=== PATIENT | female | born 1995 | race Two or more races ===

== ENCOUNTER 2024-08-27 09:10 | Emergency (ER) | payer MEDICAID, SELFPAY ==
--- NOTE | 2024-08-27 09:26 | PD.EDADULT ---
ED General RME/HPI General Chief complaint: Shortness of Breath/Dyspnea Stated complaint: SOB, COUGH, CONGESTION, CHEST/BACK PAIN Time Seen by Provider: 08/27/24 09:28 Arrival date/time: 08/27/24 09:10 CC: Wheezing shortness of breath HPI patient has a history of asthma has a flareup ongoing for the past week but worse in the last 24 hours. Denies any chest pain or fever. Wheezing and shortness of breath for the last 12 hours. No OTC medicines other than her inhaler does not have a nebulizer at home. Related Data Previous Rx's ?Medication ?Instructions ?Recorded amoxicillin 875 mg-potassium 1 tab PO BID #14 tabs 09/19/23 clavulanate 125 mg tablet ibuprofen 800 mg tablet (IBU) 800 mg PO Q8H #20 tabs 09/19/23 loratadine 10 mg tablet 10 mg PO QDAY #30 tabs 09/19/23 promethazine-DM 6.25 mg-15 mg/5 mL 5 ml PO Q6H #118 mL 09/19/23 oral syrup pseudoephedrine HCl 120 mg 120 mg PO BID PRN nasal congestion 09/19/23 tablet,extended release (Sudafed #20 tabs 12 Hour) montelukast 10 mg tablet 10 mg PO QDAY #30 tabs 02/13/24 (Singulair) prednisone 50 mg tablet 50 mg PO QDAY #7 tabs 02/13/24 prednisone 20 mg tablet See Taper PO BID 3 days #6 tabs 08/27/24 Allergies Allergy/AdvReac Type Severity Reaction Status Date / Time No Known Allergies Allergy Verified 02/13/24 18:50 Review of Systems Review of Systems Narrative Review of Systems: GEN: No fever, no chills, no weight loss EYES: No discharge, no visual changes, no pain HEENT: No ear pain, no congestion, no sore throat PULM: + Wheezing,+ shortness of breath, no cough, no congestion CV: No chest pain, no dyspnea on exertion, no palpitations GI: No nausea, no vomiting, no diarrhea, no pain, no constipation : No frequency, no urgency, no dysuria MUSC/SKEL: No joint pain, no back pain SKIN: No rash PSYCH: No hallucinations, no depression HEME/LYMPH: No easy bleeding or bruising tendencies NEURO: No weakness, no headache Past Medical History Social History SMOKING STATUS: Never smoker ED Exam Narrative Physical exam: [General: Not in any acute distress Head normocephalic HEENT: Within acceptable limits Neck is supple nontender Chest equal chest rise nontender to palpation Respiratory: Subtle end expiratory wheezing. No crackles. CV: Rate rhythm is regular no murmurs rubs or clicks Abdomen is soft nontender no masses positive bowel sounds all 4 quadrants Back: No CVA tenderness no spinous process tenderness from cervical spine thoracic and lumbar spine Skin: Intact no petechiae rash induration ulceration or crepitus Extremities: Moving all extremity against resistance cap refill less than 2 seconds neurosensory intact Neuro: Awake alert oriented x3 Glascow coma 15 no focal deficits] Course Course Course Narrative: Reassessment of this patient at 1008, the patient has significant improved breathing there is minimal wheezing. 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 Patient is advised if there is worsening of symptoms return the emergency room medially for further evaluation. Quality Measures none Orders Category Date Time Status Albuterol/Ipratr Rt Alena [Duoneb Rt Alena] Med 08/27/24 09:26 Discontinued 3 ml INH X1 ONE dexAMETHasone TAB [Decadron Tab] Med 08/27/24 09:26 Discontinued 10 mg PO X1 ONE Vital Signs Vital signs: Vital Signs Temperature 97.8 F 08/27/24 09:38 Pulse Rate 90 08/27/24 09:38 Respiratory Rate 18 08/27/24 09:38 Blood Pressure 102/69 08/27/24 09:38 Pulse Oximetry (%) 97 08/27/24 09:38 Oxygen Delivery Method Room Air 08/27/24 09:38 [facility] Patient data External records reviewed:: [facility] previous records Clinical information provided by:: patient Social determinants that could affect healthcare access:: none Patient has the following chronic illnesses:: Asthma How is presenting disease/condition affected by chronic disease/condition?: uneffected by Evaluation data The following diagnostics were reviewed and interpreted by me:: other (specify) (None) Lab and/or radiology exams considered but not ordered:: None Interpretation Summary: Mild asthma, no acute exacerbation Medications Medications considered but not ordered:: None Medication administrations:: Medication Administration History Discontinued Medications Albuterol/Ipratropium (Albuterol/Ipratropium (Duoneb) Rt Alena 3 Ml Nebu) 3 ml INH X1 ONE Stop: 08/27/24 09:27 Last Admin: 08/27/24 09:36 Dose: 3 ml Documented By: DEVORAH Dexamethasone (Dexamethasone 4 Mg Tablet) 10 mg PO X1 ONE Stop: 08/27/24 09:27 Last Admin: 08/27/24 09:35 Dose: 10 mg Documented By: OA None Consultations Consultation(s) initiated? (list below): No Diagnosis Differential Diagnosis ED Complaint MDM: Asthma exacerbation mild asthma asthma Most likely diagnosis given after review of the tests above:: Mild asthma exacerbation Admission Indicated Admission indicated?: not indicated Explain why admission is indicated or not indicated:: Stable for discharge Admission Request Was there a request for admission?: No Disposition Plan Disposition Plan: Discharge Discharge Attestation Discharge Attestation: The patient and all family members were given an opportunity to ask questions and understood the discharge instructions. Discharge instructions specifically effects, indications for sooner follow up or return to the emergency department, and the expected course of current diagnosis. Patient condition: Stable Medical Decision Making Differential Diagnosis Differential Diagnosis: Asthma exacerbation mild asthma asthma Discharge Plan Plan Patient Disposition: HOME (Self Care) Patient condition on transfer: Stable Prescriptions/Referrals Prescriptions/Med Rec: New prednisone 20 mg tablet See Taper PO BID 3 Days Qty: 6 0RF Taper: Prednisone Taper 20 mg DAILY for 2 Days and 0 Hour 10 mg DAILY for 2 Days and 0 Hour 5 mg DAILY for 7 Days and 0 Hour No Action amoxicillin-pot clavulanate 875-125 mg tablet 1 tab PO BID Qty: 14 0RF pseudoephedrine HCl [Sudafed 12 Hour] 120 mg tablet extended release 120 mg PO BID PRN (Reason: nasal congestion) Qty: 20 0RF promethazine-DM 6.25-15 mg/5 mL syrup 5 ml PO Q6H Qty: 118 0RF loratadine 10 mg tablet 10 mg PO QDAY Qty: 30 0RF ibuprofen [IBU] 800 mg tablet 800 mg PO Q8H Qty: 20 0RF prednisone 50 mg tablet 50 mg PO QDAY Qty: 7 0RF montelukast [Singulair] 10 mg tablet 10 mg PO QDAY Qty: 30 0RF Referrals: Nakul Montiel MD [Physician] - In 1 week Problem List Clinical Impression: Asthma Patient/Caregiver Discharge Instructions Other Activity Instructions:: Follow-up with the grounds supervisor as status take the medication as prescribed there is worsening of symptoms by the medications return the emergency room medially for further evaluation. Education Materials: Asthma Print Language: Lebanese Stand Alone Forms: Nathaly Award Info., Work/School Release, Patient Portal Info Letter PA/CAPACITY PLANNING MANAGER Supervising Physician PA/CAPACITY PLANNING MANAGER Supervising Physician: Jt Massey ENP
[2024-08-27] MEDS: dexAMETHasone 4 MG TABLET 10 MG PO (09:35)
[2024-08-27] MEDS: ALBUTEROL/IPRATROPIUM (Duoneb) RT SOL 3 ML NEBU INH (09:36)
[2024-08-27 09:38] VITALS: BP 102/69; PULSE 90; RESP 18; TEMP 36.6; O2SAT 97
[2024-08-27 09:39] VITALS: PULSE 103; RESP 18; O2SAT 100
== END 2024-08-27 10:15 | disposition home or self-care (01) ==
PROVIDERS: Emergency Provider Emergency Medicine; PCP Family Medicine
DX: J45.909 Unspecified asthma, uncomplicated (principal)
CPT/HCPCS: 94640; 99283; A9270; J8540

== ENCOUNTER 2024-09-11 09:07 | Emergency (ER) | payer MEDICAID, SELFPAY ==
[2024-09-11 09:14] VITALS: BP 106/72; PULSE 106; RESP 23; TEMP 36.7; O2SAT 95; BMI 25.2
--- NOTE | 2024-09-11 09:16 | EDNOTE_ITS ---
<Statement entered by Ayala Guidry MD - 09/11/24 17:33> As co-signing physician, I was present and available for consult prn. I concur with the plan and care as documented by the midlevel provider. ED General RME/HPI General Chief complaint: Shortness of Breath/Dyspnea Stated complaint: SOB, COUGH, BACK PAIN, CHEST TIGHTNESS Time Seen by Provider: 09/11/24 09:15 Arrival date/time: 09/11/24 09:07 CC: Wheezing HPI ongoing since last night with progressive increase in severity now mildly tachypneic, patient has a history of asthma used her inhalers at home but without success this episode actually started a week plus ago, and has been slowly getting worse until last night. Patient denies chest pain fever chills nausea or vomiting. Related Data Previous Rx's ?Medication ?Instructions ?Recorded amoxicillin 875 mg-potassium 1 tab PO BID #14 tabs 11/06 clavulanate 125 mg tablet ibuprofen 800 mg tablet (IBU) 800 mg PO Q8H #20 tabs 0 09/19/23 loratadine 10 mg tablet 10 mg PO QDAY #30 tabs 09/18 promethazine-DM 6.25 mg-15 mg/5 mL 5 ml PO Q6H #118 mL 09/19/23 oral syrup pseudoephedrine HCl 120 mg 120 mg PO BID PRN nasal con gestion 09/19/23 tablet,extended release (Sudafed #20 tabs 12 Hour) montelukast 10 mg tablet 10 mg PO QDAY #30 tabs 02/12 (Singulair) prednisone 50 mg tablet 50 mg PO QDAY #7 tabs prednisone 20 mg tablet See Taper PO BID 3 days #6 t abs 09/11/24 Allergies Allergy/AdvReac Type Severity Reaction Status Date / Time No Known Allergies Allergy Verified 02/13/24 18:50 Review of Systems Review of Systems Narrative Review of Systems: GEN: No fever, no chills, no weight loss EYES: No discharge, no visual changes, no pain HEENT: No ear pain, no congestion, no sore throat PULM: No shortness of breath, no cough, no congestion, + wheezing CV: No chest pain, no dyspnea on exertion, no palpitations GI: No nausea, no vomiting, no diarrhea, no pain, no constipation : No frequency, no urgency, no dysuria MUSC/SKEL: No joint pain, no back pain SKIN: No rash PSYCH: No hallucinations, no depression HEME/LYMPH: No easy bleeding or bruising tendencies NEURO: No weakness, no headache Past Medical History Social History SMOKING STATUS: Never smoker ED Exam Narrative Physical exam: [General: Not in any distress Head normocephalic HEENT: Within acceptable limits Neck is supple nontender Chest equal chest rise nontender to palpation Respiratory: Audible expiratory wheezing, end expiratory crackles on auscultation. Mildly tachypneic. CV: Rate rhythm is regular no murmurs rubs or clicks Abdomen is soft nontender no masses positive bowel sounds all 4 quadrants Back: No CVA tenderness no spinous process tenderness from cervical spine thoracic and lumbar spine Skin: Intact no petechiae rash induration ulceration or crepitus Extremities: Moving all extremity against resistance cap refill less than 2 seconds neurosensory intact Neuro: Awake alert oriented x3 Glascow coma 15 no focal deficits] Course Quality Measures none Orders Category Date Time Status ALBUTEROL RT 0.5ml [Proventil Rt 0.5ml] Med 09/11/24 09:15 Discontinued 5 mg INH X1 ONE Albuterol/Ipratr Rt Alena [Duoneb Rt Alena] Med 09/11/24 09:15 Discontinued 3 ml INH X1 ONE predniSONE Med 09/11/24 09:15 Discontinued 20 mg PO X1 ONE Vital Signs Vital signs: Vital Signs Temperature 98.0 F 09/11/24 09:14 Pulse Rate 106 H 09/11/24 09:14 Respiratory Rate 23 H 09/11/24 09:14 Blood Pressure 106/72 09/11/24 09:14 Pulse Oximetry (%) 95 09/11/24 09:14 Oxygen Delivery Method Room Air 09/11/24 09:14 [facility] Patient data External records reviewed:: [facility] previous records Clinical information provided by:: patient Social determinants that could affect healthcare access:: none Patient has the following chronic illnesses:: Asthma How is presenting disease/condition affected by chronic disease/condition?: exacerbated by Evaluation data The following diagnostics were reviewed and interpreted by me:: other (specify) (None) Lab and/or radiology exams considered but not ordered:: None Interpretation Summary: Asthma exacerbation significant improvement after 2 SVN's we will discharge the patient home on steroids. Medications Medications considered but not ordered:: None Medication administrations:: Medication Administration History Discontinued Medications Albuterol (Albuterol Rt 2.5 Mg/0.5 Ml Nebu) 5 mg INH X1 ONE Stop: 09/11/24 09:16 Last Admin: 09/11/24 09:35 Dose: 5 mg Documented By: ARPIT Albuterol/Ipratropium (Albuterol/Ipratropium (Duoneb) Rt Alena 3 Ml Nebu) 3 ml INH X1 ONE Stop: 09/11/24 09:16 Last Admin: 09/11/24 09:35 Dose: 3 ml Documented By: ARPIT Prednisone (Prednisone 20 Mg Tablet) 20 mg PO X1 ONE Stop: 09/11/24 09:16 Last Admin: 09/11/24 09:41 Dose: 20 mg Documented By: DO None Consultations Consultation(s) initiated? (list below): No Diagnosis Differential Diagnosis ED Complaint MDM: Asthma exacerbation pneumonia viral syndrome Most likely diagnosis given after review of the tests above:: Asthma exacerbation Admission Indicated Admission indicated?: not indicated Explain why admission is indicated or not indicated:: Stable for outpatient follow-up Admission Request Was there a request for admission?: No Disposition Plan Disposition Plan: Discharge Discharge Attestation Discharge Attestation: The patient and all family members were given an opportunity to ask questions and understood the discharge instructions. Discharge instructions specifically effects, indications for sooner follow up or return to the emergency department, and the expected course of current diagnosis. Patient condition: Stable Medical Decision Making Differential Diagnosis Differential Diagnosis: Asthma exacerbation pneumonia viral syndrome Discharge Plan Plan Patient Disposition: HOME (Self Care) Patient condition on transfer: Stable Prescriptions/Referrals Prescriptions/Med Rec: New prednisone 20 mg tablet See Taper PO BID 3 Days Qty: 6 0RF Taper: Prednisone Taper 20 mg DAILY for 2 Days and 0 Hour 10 mg DAILY for 2 Days and 0 Hour 5 mg DAILY for 7 Days and 0 Hour No Action amoxicillin-pot clavulanate 875-125 mg tablet 1 tab PO BID Qty: 14 0RF pseudoephedrine HCl [Sudafed 12 Hour] 120 mg tablet extended release 120 mg PO BID PRN (Reason: nasal congestion) Qty: 20 0RF promethazine-DM 6.25-15 mg/5 mL syrup 5 ml PO Q6H Qty: 118 0RF loratadine 10 mg tablet 10 mg PO QDAY Qty: 30 0RF ibuprofen [IBU] 800 mg tablet 800 mg PO Q8H Qty: 20 0RF prednisone 50 mg tablet 50 mg PO QDAY Qty: 7 0RF montelukast [Singulair] 10 mg tablet 10 mg PO QDAY Qty: 30 0RF Referrals: Reese Mauricio MD [Primary Care Provider] - In 1 week Problem List Clinical Impression: Asthma with exacerbation Patient/Caregiver Discharge Instructions Education Materials: Asthma Trigger Checklist, Asthma Print Language: Malian Stand Alone Forms: Nathaly Award Info., Patient Portal Info Letter, Work/School Release PA/HIGHWAY ENGINEER Supervising Physician PA/HIGHWAY ENGINEER Supervising Physician: Jt Massey ENP
[2024-09-11 09:35] VITALS: PULSE 105
[2024-09-11] MEDS: ALBUTEROL/IPRATROPIUM (Duoneb) RT SOL 3 ML NEBU INH (09:35)
[2024-09-11] MEDS: ALBUTEROL RT 2.5 MG/0.5 ML NEBU 5 MG INH (09:35)
[2024-09-11 09:37] VITALS: PULSE 99; RESP 20; O2SAT 100
[2024-09-11] MEDS: predniSONE 20 MG TABLET PO (09:41)
== END 2024-09-11 10:35 | disposition home or self-care (01) ==
PROVIDERS: Emergency Provider Emergency Medicine; PCP Student in an Organized Health Care Education/Training Program
DX: J45.901 Unspecified asthma with (acute) exacerbation (principal)
CPT/HCPCS: 94640; 99283; A9270; J7512

== ENCOUNTER 2025-03-10 19:35 | Emergency (ER) | payer MEDICAID, SELFPAY ==
[2025-03-10 19:36] VITALS: BMI 26.6
--- NOTE | 2025-03-10 20:16 | XR_ITS ---
Examination: Abdomen sonogram, Limited Date and time of exam: March 10, 2025, 2034 hrs. Indications: Epigastric pain beginning one month ago Technique: Grayscale sonographic images abdomen Findings: Multiple gallstones Gallbladder wall 0.47 cm Common bile duct 0.4 cm Pancreatic head 2.1 cm Liver 15.9 cm no liver lesions Normal hepatopedal portal venous flow Patent IVC Impression: Consider HIDA scan or MRCP follow-up to confirm calculus cholecystitis
--- NOTE | 2025-03-10 20:16 | PD.EDRME ---
Rapid Medical Screening Exam [facility] Arrival date/time: 03/10/25 19:35 29F with history of asthma presents to ED with 1 month of intermittent RUQ/epigastric pain that radiates to back. Chief Complaint: Abdominal Pain Vital signs: Vital Signs Temperature 98.7 F 03/10/25 20:17 Pulse Rate 83 03/10/25 20:17 Respiratory Rate 16 03/10/25 20:17 Blood Pressure 111/75 03/10/25 20:17 Pulse Oximetry (%) 96 03/10/25 20:17 Oxygen Delivery Method Room Air 03/10/25 20:17
[2025-03-10 20:17] VITALS: BP 111/75; PULSE 83; RESP 16; TEMP 37.1; O2SAT 96
[2025-03-10 20:37] LABS: Basophils # (Auto) 0.1 Thou/mm3 (0.0-0.2); Basophils % (Auto) 1 % (0-2.5); Eosinophils # (Auto) 0.2 Thou/mm3 (0.0-0.5); Eosinophils % (Auto) 3 % (0-10); Hematocrit 37.0 % (36.0-46.0); Hemoglobin 11.7 g/dL (12.0-16.0); Immature Granulocytes Auto 0.04 Thou/mm3 (0.00-0.00); Lymphocytes # (Auto) 2.7 Thou/mm3 (1.0-4.8); Lymphocytes % (Auto) 34 % (10-50); Mean Corpuscular HGB Conc 31.6 g/dl (31.0-37.0); Mean Corpuscular Hemoglobin 22.8 pg (25.0-35.0); Mean Corpuscular Volume 72 fL (80-100); Monocytes # (Auto) 0.7 Thou/mm3 (0.0-0.8); Monocytes % (Auto) 9 % (0-12); Neutrophils # (Auto) 4.2 Thou/mm3 (1.8-7.7); Neutrophils % (Auto) 53 % (37-80); Nucleated Red Blood Cell # 0.00 Thou/mm3 (0.00-0.00); Nucleated Red Blood Cell % 0 /100 WBC (0); Platelet Count 311 Thou/mm3 (140-440); RDW Standard Deviation 37.6 fL (36.4-46.3); Red Blood Count 5.14 Miln/mm3 (4.00-5.20); White Blood Count 7.8 Thou/mm3 (3.6-11.0)
[2025-03-10 21:19] LABS: Alanine Aminotransferase 15 U/L (10-49); Albumin, Serum 4.5 gm/dL (3.5-5.0); Albumin/Globulin Ratio 1.7 (1.2-2.2); Alkaline Phosphatase 57 U/L (46-116); Anion Gap 8 (7-16); Aspartate Amino Transferase 21 U/L (0-34); BUN/Creatinine Ratio 15 Ratio (12-20); Bilirubin,Total 0.3 mg/dL (0.3-1.2); Blood Urea Nitrogen 12 mg/dL (9-23); Calcium 9.4 mg/dL (8.3-10.6); Calcium (Corrected) 9.4 mg/dL (8.5-10.1); Carbon Dioxide 24.1 mMol/L (20.0-31.0); Chloride 109 mMol/L (98-107); Creatinine (Component) 0.8 mg/dL (0.6-1.3); Estimated Creatinine Clearance 98.9 mL/min (>60); Globulin 2.7 gm/dL (2.3-3.5); Glucose 99 mg/dL (74-106); Osmolality,Calculated 280 (275-295); Potassium 3.6 mMol/L (3.4-5.1); Sodium 141 mMol/L (136-145); Total Protein 7.2 gm/dL (5.7-8.2); eGFR > 60 See Note
[2025-03-10 22:03] LABS: Collection Type, Urine Clean Catch
[2025-03-10 22:06] LABS: Lipase 47 U/L (12-53)
[2025-03-10 22:15] LABS: HCG Qualitative,Urine Negative
[2025-03-10 22:18] LABS: Bilirubin,Urine Negative (Negative); Blood,Urine Negative (Negative); Clarity,Urine Clear (Clear/Hazy); Color,Urine Yellow (Lt Yel-Yel); Culture Indicated,Urine Not Indicated; Glucose, Urine Negative (Negative); Ketones,Urine Negative (Negative); Leukocyte Esterase,Urine Positive (Negative); Nitrite,Urine Negative (Negative); PH,Urine 6.5 (5.0-7.0); Protein,Urine 1+ (Neg - Trace); RBC,Urine 2 /hpf (0-3); Specific Gravity,Urine 1.031 (1.001-1.035); Squamous Epithelial Cell,Urine 12 /hpf (0-5); Urobilinogen,Urine Negative mg/dL (0.0-1.0); WBC,Urine 6 /hpf (0-5)
[2025-03-10 22:23] LABS: Amphetamine/Methamp Scrn,U Negative (Negative); Barbiturate Screen,Urine Negative (Negative); Benzodiazepines Screen,Urine Negative (Negative); Benzoylecgonine Screen, Ur Negative (Negative); Fentanyl Screen,Urine Negative (Negative); Opiate Screen,Urine Negative (Negative); THC Screen,Urine Negative (Negative)
--- NOTE | 2025-03-10 22:52 | EDNOTE_ITS ---
ED General RME/HPI General Chief complaint: Abdominal Pain Stated complaint: ABD BLOATING AND RIGHT BACK PAIN Arrival date/time: 03/10/25 19:35 RME / HPI RME / HPI narrative: 03/10/25 19:35 29F with history of asthma presents to ED with 1 month of intermittent RUQ/epigastric pain that radiates to back. DR. CASAS MAIN ED EVALUATION: Patient presenting with ongoing epigastric abdominal pain radiating to the right flank x several months duration with increasing frequency of symptoms postprandially. No fever, chills, diarrhea, and no dysuria. Pmh: Asthma and glucose intolerance. PSH Tonsillectomy and x 2 Allergies: None. Social: Occasional alcohol, no tobacco or drugs. Related Data Previous Rx's ?Medication ?Instructions ?Recorded amoxicillin 875 mg-potassium 1 tab PO BID #14 tabs 11/06 clavulanate 125 mg tablet ibuprofen 800 mg tablet (IBU) 800 mg PO Q8H #20 tabs 0 09/19/23 loratadine 10 mg tablet 10 mg PO QDAY #30 tabs 09/18 promethazine-DM 6.25 mg-15 mg/5 mL 5 ml PO Q6H #118 mL 09/19/23 oral syrup pseudoephedrine HCl 120 mg 120 mg PO BID PRN nasal con gestion 09/19/23 tablet,extended release (Sudafed #20 tabs 12 Hour) montelukast 10 mg tablet 10 mg PO QDAY #30 tabs 02/12 (Singulair) prednisone 50 mg tablet 50 mg PO QDAY #7 tabs acetaminophen 300 mg-codeine 15 mg 1 tab PO Q8H PRN pa in #14 tabs 03/10/25 tablet amoxicillin 500 mg-potassium 1 tab PO TID #21 tabs clavulanate 125 mg tablet (Augmentin) promethazine 12.5 mg tablet 12.5 mg PO TID PRN nausea and 03/10/25 vomiting #14 tabs Allergies Allergy/AdvReac Type Severity Reaction Status Date / Time No Known Allergies Allergy Verified 03/10/25 19:36 Review of Systems Review of Systems Systems Reviewed: All systems reviewed, normal except as documented ED Exam Narrative Physical exam: GEN. APPEARANCE: The patient is alert awake oriented X-3 in no distress, lying down comfortably, does not look ill/toxic. Patient has good eye contact. Patient is cooperative. VITALS: All vitals were reviewed and the pulse ox is 96% on room air which is normal according to my interpretation. HEENT: Normocephalic, atraumatic. Pupils are equal and reactive. Oral mucosa is moist. Patent Nares NECK: Supple, nontender, no thyromegaly, no meningismus, no JVD, no step offs CHEST: Symmetrical, atraumatic, and with equal expansion , Nontender on palpation no deformity and no crepitus. CARDIOVASCULAR: Heart regular rhythm no murmur or gallop rub or extra beats. LUNGS: Clear to auscultation bilaterally with symmetrical chest rise. No laboring tachypnea or wheezing. No intercostal subcostal retraction. No rales and no rhonchi. ABDOMEN: Soft, flat, Ggno-[id number] tenderness extended from epigastrium towards the right flank in the subcostal region, no gross peritoneal findings, no guarding or rebound tenderness. There are no abnormal masses palpated. Active and normal bowel sounds. EXTREMITIES: Nontender. No edema. No cyanosis. Patient is able to move all 4 extremities well, with full ROM and good CSM. SKIN: Warm and dry, no jaundice or rashes noted. MUSCULOSKELETAL: No lubar or midline bony tenderness. There is no CVA tenderness. No paraspinal muscle spasm or tenderness. NEURO: Patient is PERALTA x 4, Cranial nerves II through XII grossly intact. There is no focal neurologic deficits noted. GCS is 15, PNS and MILIEU COUNSELOR appear grossly intact. PSYCHIATRIC: Patient is in normal mood and affect, cooperative, no SI or HI or hallucinations. Course Quality Measures none Orders Category Date Time Status US gall bladder Stat Exams 03/10/25 20:16 Completed CBC Stat Lab 03/10/25 20:23 Completed CMP [Comprehensive Metabolic Panel] Stat Lab 03/10/25 20:23 Completed Drug Screen,Urine Stat Lab 03/10/25 21:00 Completed HCG Qualitative,Urine Stat Lab 03/10/25 21:00 Completed Lipase Stat Lab 03/10/25 20:23 Completed Urinalysis, C/S if Indicated Stat Lab 03/10/25 21:00 Completed HYDROcodone*/APAP 5/325 [Esopus 5/325] Med 03/10/25 23:25 Discontinued 1 tab PO X1 ONE Vital Signs Vital signs: Vital Signs Temperature 98.7 F 03/10/25 20:17 Pulse Rate 83 03/10/25 20:17 Respiratory Rate 16 03/10/25 20:17 Blood Pressure 111/75 03/10/25 20:17 Pulse Oximetry (%) 96 03/10/25 20:17 Oxygen Delivery Method Room Air 03/10/25 20:17 Discharge Plan Plan Patient Disposition: HOME (Self Care) Discharge Disposition comment: Stable Prescriptions/Referrals Prescriptions/Med Rec: New amoxicillin-pot clavulanate [Augmentin] 500-125 mg tablet 1 tab PO TID Qty: 21 0RF acetaminophen-codeine 300-15 mg tablet 1 tab PO Q8H PRN (Reason: pain) Qty: 14 0RF promethazine 12.5 mg tablet 12.5 mg PO TID PRN (Reason: nausea and vomiting) Qty: 14 0RF No Action amoxicillin-pot clavulanate 875-125 mg tablet 1 tab PO BID Qty: 14 0RF pseudoephedrine HCl [Sudafed 12 Hour] 120 mg tablet extended release 120 mg PO BID PRN (Reason: nasal congestion) Qty: 20 0RF promethazine-DM 6.25-15 mg/5 mL syrup 5 ml PO Q6H Qty: 118 0RF loratadine 10 mg tablet 10 mg PO QDAY Qty: 30 0RF ibuprofen [IBU] 800 mg tablet 800 mg PO Q8H Qty: 20 0RF prednisone 50 mg tablet 50 mg PO QDAY Qty: 7 0RF montelukast [Singulair] 10 mg tablet 10 mg PO QDAY Qty: 30 0RF Referrals: Alexis Chris MD [Physician, General Surgery] - In 1 week Referral Note: Patient with history of chronic epigastric/right upper quadrant abdominal pain for 3 to 4 months with evidence of multiple stones and? Chronic cholecystitis. Please evaluate No Primary/Family,Physician [Primary Care Provider] - In 1 week Problem List Clinical Impression: Cholelithiasis Patient/Caregiver Discharge Instructions Diet Instructions: Low-fat diet Education Materials: ED Gallstones with Biliary Colic Additional Instructions: Low-fat diet, medication as directed, follow-up with general surgery in 3 to 5 days. Return for fever persistent vomiting escalating abdominal pain Print Language: Kyrgyz Stand Alone Forms: Nathaly Award Info., Patient Portal Info Letter MDM Narrative MDM hospital course (for use when minimal MDM required): Scribe Attestation: I, Asya Pina, am scribing for and in the presence of Dr. Casas. Provider Notation: Although this document has been carefully reviewed, there may still be some phonetic and other typographical errors. These errors are purely grammatical due to imperfections in the software program and should not be construed in any way to compromise the substance of the patient's medical care during this visit. Patient presenting with ongoing epigastric abdominal pain radiating to the right flank x several months duration with increasing frequency of symptoms postprandially. No fever, chills, diarrhea, and no dysuria. Please see PE findings. Laboratory markers including CBC, serum, chemistries, LFT's, lipase, were unremarkable. GB US demonstrates multiple galls stones with thickened gall bladder wall, no other signs of cholecystitis, HIDA recommended. Patient is nontoxic, appears well-hydrated. Will be seen in close F/U for possible cholecystectomy. Precautionary instructions provided. Clinical Information Provided by: patient Medical Records reviewed [facility] Medical Records additional comments: Reviewed prior ED records from 09/11/24. Patient was seen for Asthma with exacerbation. Meds/Rx considered, not ordered None Labs/Rad/Tests considered, not ordered None EKG EKG not done Labs Labs: interpreted by me and see narrative above Imaging Imaging interpretation: interpreted by me and see narrative above Medication Administration(s) Medication Administration History Discontinued Medications Hydrocodone Bitart/Acetaminophen (Hydrocodone/Apap 5/325 Tablet) 1 tab PO X1 ONE Stop: 03/10/25 23:26 Last Admin: 03/10/25 23:39 Dose: 1 tab Documented By: MC See above if any Diagnosis Differential Diagnosis ED Complaint MDM: Gastritis, Cholecystitis, GERD, Renal calculi
[2025-03-10 23:16] VITALS: BP 113/69; PULSE 80; RESP 17; TEMP 36.6; O2SAT 99
[2025-03-10] MEDS: HYDROcodone/APAP 5/325 TABLET 1 TAB PO (23:39)
== END 2025-03-10 23:48 | disposition home or self-care (01) ==
PROVIDERS: Physician Assistant; Emergency Provider Emergency Medicine
DX: K80.20 Calculus of gallbladder without cholecystitis without obstruction (principal)
CPT/HCPCS: 36415; 76705; 80053; 80307; 81001; 81025; 83690; 85025; 99283; A9270

== ENCOUNTER 2025-06-10 01:39 | Emergency (ER) | payer MEDICAID, SELFPAY ==
[2025-06-10 01:40] VITALS: BMI 27.4
[2025-06-10 01:47] VITALS: BP 108/69; PULSE 97; RESP 16; TEMP 36.7; O2SAT 96
[2025-06-10 02:03] VITALS: PULSE 95; RESP 20; O2SAT 96
[2025-06-10] MEDS: BUDESONIDE RT 0.5 MG/2 ML NEBU INH (02:03)
[2025-06-10] MEDS: ALBUTEROL/IPRATROPIUM (Duoneb) RT SOL 3 ML NEBU INH (02:03)
--- NOTE | 2025-06-10 02:13 | PD.ASTHM ---
ED Asthma RME/HPI General Chief Complaint: Flu Like Symptoms Stated Complaint: SOB Time Seen by Provider: 06/10/25 01:55 Arrival date/time: 06/10/25 01:39 29F with history of asthma presents to ED with 2 days of SOB and wheezing. No phlegm or fevers/chills. Limitations: no limitations Related Data Previous Rx's ?Medication ?Instructions ?Recorded amoxicillin 875 mg-potassium 1 tab PO BID #14 tabs 09/19/23 clavulanate 125 mg tablet ibuprofen 800 mg tablet (IBU) 800 mg PO Q8H #20 tabs 09/19/23 loratadine 10 mg tablet 10 mg PO QDAY #30 tabs 09/19/23 promethazine-DM 6.25 mg-15 mg/5 mL 5 ml PO Q6H #118 mL 09/19/23 oral syrup pseudoephedrine HCl 120 mg 120 mg PO BID PRN nasal congestion 09/19/23 tablet,extended release (Sudafed #20 tabs 12 Hour) montelukast 10 mg tablet 10 mg PO QDAY #30 tabs 02/13/24 (Singulair) prednisone 50 mg tablet 50 mg PO QDAY #7 tabs 02/13/24 acetaminophen 300 mg-codeine 15 mg 1 tab PO Q8H PRN pain #14 tabs 03/10/25 tablet amoxicillin 500 mg-potassium 1 tab PO TID #21 tabs 03/10/25 clavulanate 125 mg tablet (Augmentin) promethazine 12.5 mg tablet 12.5 mg PO TID PRN nausea and 03/10/25 vomiting #14 tabs albuterol sulfate 90 mcg/actuation 2 puff inhalation Q6H PRN 06/10/25 aerosol inhaler (Ventolin HFA) shortness of breath or wheezing #8.5 grams prednisone 20 mg tablet 20 mg PO BID 4 days #8 tabs 06/10/25 Allergies Allergy/AdvReac Type Severity Reaction Status Date / Time No Known Allergies Allergy Verified 06/10/25 01:43 Review of Systems Review of Systems Systems Reviewed: All systems reviewed, normal except as documented Cardiovascular Cardiovascular: Reports dyspnea Respiratory Respiratory: Reports as per HPI, Reports dyspnea and Reports wheezing Allergic/Immunologic Allergic/Immunologic: Reports wheezing Past Medical History Past Medical History NEUROLOGIC: Negative Neurological Disorders or Seizures CARDIAC: Negative Cardiac Disorders or Congestive Heart Failure RESPIRATORY: Positive Asthma; Negative Chronic Obstructive Pulmonary Disease (COPD) GASTROINTESTINAL: Negative Gastrointestinal Disorders GENITOURINARY: Negative Genitourinary Disorders or Renal Disease REPRODUCTIVE: Negative Pelvic Inflammatory Disease MUSCULOSKELETAL: Negative Musculoskeletal Disorders ENDOCRINE: Negative Endocrine Disorders, Diabetes Mellitus Type 1 or Diabetes Mellitus Type 2 HEMATOLOGIC: Negative Blood Disorders OTHER HISTORY: Negative Autoimmune Disease, Blood Transfusions, Anesthesia Reactions, MRSA, VRSA, Clostridium Difficile or Cancer Surgical History SURGICAL: Positive Oral Surgery, Tonsillectomy and Section (x2); Negative Endocrine Surgery, Nephrectomy, Joint Replacement or Neurologic Surgery Social History SMOKING STATUS: Never smoker ED Exam General Limitations: Present no limitations General appearance: Present alert and in no apparent distress Head Head exam: Present atraumatic Neck Neck exam: Present normal inspection, full ROM and trachea midline Chest Chest inspection: Present normal inspection and symmetric chest wall rise Respiratory Respiratory exam: Present wheezes Neurological Exam Neurological exam: Present alert and oriented X3 Psychiatric Psychiatric exam: Present normal affect and normal mood Skin Skin exam: Present warm, dry, intact and normal color Course Quality Measures none Orders Category Date Time Status Albuterol/Ipratr Rt Alena [Duoneb Rt Alena] Med 06/10/25 01:55 Discontinued 3 ml INH X1 ONE Budesonide Rt [Pulmicort Rt Alena] Med 06/10/25 01:55 Discontinued 0.5 mg INH X1 ONE dexAMETHasone INJ [Decadron Inj] Med 06/10/25 01:55 Discontinued 10 mg PO X1 ONE Vital Signs Vital signs: Vital Signs Temperature 98.1 F 06/10/25 01:47 Pulse Rate 97 06/10/25 01:47 Respiratory Rate 16 06/10/25 01:47 Blood Pressure 108/69 06/10/25 01:47 Pulse Oximetry (%) 96 06/10/25 01:47 Oxygen Delivery Method Room Air 06/10/25 01:47 Asthma MDM Narrative MDM Narrative:: 29F with history of asthma presents to ED with 2 days of SOB and wheezing. No phlegm or fevers/chills. Physical exam reveals some wheezing in lungs. Patient is afebrile, calm, and alert. Meds relieved wheezing. Meds and pet adoption counselor given. Patient data External records reviewed:: [facility] previous records Clinical information provided by:: patient Social determinants that could affect healthcare access:: none Patient has the following chronic illnesses:: asthma How is presenting disease/condition affected by chronic disease/condition?: exacerbated by Evaluation data The following diagnostics were reviewed and interpreted by me:: other (specify) (none) Lab and/or radiology exams considered but not ordered:: not ordered Interpretation Summary: n/a Medications / Prescriptions Medications or Prescriptions considered but not ordered:: ordered Medication administrations:: Medication Administration History Discontinued Medications Albuterol/Ipratropium (Albuterol/Ipratropium (Duoneb) Rt Alena 3 Ml Nebu) 3 ml INH X1 ONE Stop: 06/10/25 01:56 Last Admin: 06/10/25 02:03 Dose: 3 ml Documented By: SAKINA Budesonide (Budesonide Rt 0.5 Mg/2 Ml Nebu) 0.5 mg INH X1 ONE Stop: 06/10/25 01:56 Last Admin: 06/10/25 02:03 Dose: 0.5 mg Documented By: SAKINA Dexamethasone Sodium Phosphate (Dexamethasone Sod Phos Inj 10 Mg/Ml Vial) 10 mg PO X1 ONE Stop: 06/10/25 01:56 Consultations Consultation(s) initiated? (list below): No Diagnosis Differential diagnosis asthma: Acute exacerbation, Status asthmaticus, Acute asthmatic bronchitis, PE, Pneumonia, COPD exacerbation, Pulmonary edema systolic, Pulmonary edema dystolic, ARDS, Pneumothorax and Foreign body in trachea Most likely diagnosis given after review of the tests above:: asthma exacerbation Admission Indicated Admission indicated?: not indicated Admission Request Was there a request for admission?: No Disposition Plan Disposition Plan: Discharge Discharge Attestation Discharge Attestation: The patient and all family members were given an opportunity to ask questions and understood the discharge instructions. Discharge instructions specifically effects, indications for sooner follow up or return to the emergency department, and the expected course of current diagnosis. Patient condition: Stable Discharge Plan Plan Patient Disposition: HOME (Self Care) Discharge Disposition comment: Stable Prescriptions/Referrals Prescriptions/Med Rec: New albuterol sulfate [Ventolin HFA] 90 mcg/actuation HFA aerosol inhaler 2 puff inhalation Q6H PRN (Reason: shortness of breath or wheezing) Qty: 8.5 0RF prednisone 20 mg tablet 20 mg PO BID 4 Days Qty: 8 0RF No Action amoxicillin-pot clavulanate [Augmentin] 500-125 mg tablet 1 tab PO TID Qty: 21 0RF acetaminophen-codeine 300-15 mg tablet 1 tab PO Q8H PRN (Reason: pain) Qty: 14 0RF promethazine 12.5 mg tablet 12.5 mg PO TID PRN (Reason: nausea and vomiting) Qty: 14 0RF amoxicillin-pot clavulanate 875-125 mg tablet 1 tab PO BID Qty: 14 0RF pseudoephedrine HCl [Sudafed 12 Hour] 120 mg tablet extended release 120 mg PO BID PRN (Reason: nasal congestion) Qty: 20 0RF promethazine-DM 6.25-15 mg/5 mL syrup 5 ml PO Q6H Qty: 118 0RF loratadine 10 mg tablet 10 mg PO QDAY Qty: 30 0RF ibuprofen [IBU] 800 mg tablet 800 mg PO Q8H Qty: 20 0RF prednisone 50 mg tablet 50 mg PO QDAY Qty: 7 0RF montelukast [Singulair] 10 mg tablet 10 mg PO QDAY Qty: 30 0RF Problem List Clinical Impression: Asthma exacerbation Patient/Caregiver Discharge Instructions Education Materials: ED Asthma, Acute (Adult) Additional Instructions: Please follow-up with PCP within 24-48 hours and return immediately if symptoms worsen. Print Language: Liberian Stand Alone Forms: Patient Portal Info Letter PA/MEDICAL RECORDS COORDINATOR Supervising Physician DANA/TREY Supervising Physician: Dr. Carlton
== END 2025-06-10 03:16 | disposition home or self-care (01) ==
LOC: SERX 03:08
PROVIDERS: Emergency Provider Emergency Medicine; PCP Physician Assistant
DX: J45.901 Unspecified asthma with (acute) exacerbation (principal)
CPT/HCPCS: 94640; 99282; A9270; J1100